=== PATIENT | female | born 1950 ===

== ENCOUNTER 2025-01-19 08:15 | Inpatient (IN) | payer OTHER ==
[~2025-01-19] VITALS: Ht 165.1 cm; Wt 66.7 kg
[2025-01-19] MEDS ORDERED: EVISTA60 MG (08:50)
[2025-01-19 08:53] VITALS: BP 149/72
[2025-01-19 09:09] LABS: HEMATOCRIT 35.8 % (36.0-45.00); HEMOGLOBIN 11.9 g/dL (12.0-15.00); MEAN CELL VOLUME 95.8 fL (80.00-100.00); MEAN CORPUSCULAR HEMOGLOBIN 31.9 pg (27.00-32.0); MEAN CORPUSCULAR HGB CONC 33.3 g/dl (32.0-36.0); PLATELET COUNT 214 K/uL (150-450); RED BLOOD COUNT 3.74 M/uL (4.00-6.00); RED CELL DISTRIBUTION WIDTH 12.8 % (11.5-14.5); URINE APPEARANCE Clear; URINE BILIRRUBIN Negative (NEGATIVE); URINE BLOOD Negative; URINE COLOR Yellow; URINE GLUCOSE Negative (NEGATIVE); URINE KETONE Negative (NEGATIVE); URINE LEUKOCYTE Negative; URINE NITRATE Negative; URINE PROTEIN Negative (NEGATIVE); URINE UROBILINOGEN 0.2 E.U./dl
[2025-01-19 09:10] LABS: URINE BACTERIA 4.8 uL (0.0-1933); URINE EPITHELIAL CELLS 1.8 uL (0.0-38.8); URINE RBC 3.6 uL (0.0-20.8)
[2025-01-19 09:23] LABS: URINE WBC 1.5 uL (0.0-23.2)
[2025-01-19 09:26] LABS: INR 0.94; PROTHROMBIN TIME 10.3 SECONDS (9.0-11.5)
[2025-01-19 09:43] LABS: ALBUMIN 3.3 gm/dL (3.4-5.0); BILIRUBIN TOTAL 0.44 mg/dL (0.3-1.2); CALCIUM 9.4 mg/dL (8.5-10.1); CREATININE SERUM 0.57 mg/dL (0.55-1.02); GFR 103.68; GLOBULINA 3.9 G/DL (2.4-3.5); POTASSIUM 4.45 mEq/L (3.5-5.1); TOTAL PROTEIN 7.2 gm/dL (6.4-8.2)
[2025-01-19 09:49] LABS: RH POSITIVE
[2025-01-25] MEDS ORDERED: KETOROLAC TROMETHAMINE 60 MG VIAL IM ONE (09:15)
[2025-01-25] MEDS ORDERED: CEFAZOLIN SODIUM 1,000 MG VIAL IV ONE (09:15)
[2025-01-25] MEDS ORDERED: TRANEXAMIC ACID 100MG/1ML (1000MG) AMPUL IV ONE ×2 (09:15)
[2025-01-25] MEDS ORDERED: MORPHINE SULFATE 4 MG/ML VIAL IV ONE ×2 (09:30→13:10)
[2025-01-25] MEDS ORDERED: GENTAMICIN SULFATE 40 MG/ML VIAL IV SCH (11:11)
[2025-01-25] MEDS ORDERED: MORPHINE SULFATE 2 MG/ML CARTRIDGE IV ONE (11:15)
[2025-01-25] MEDS ORDERED: ONDANSETRON HCL 2 MG/ML VIAL IV PRN (11:15)
[2025-01-25] MEDS ORDERED: MORPHINE SULFATE 4 MG/ML CARTRIDGE IV PRN (11:15)
[2025-01-25] MEDS ORDERED: SODIUM CHLORIDE 0.45 % 1,000 ML IV SCH (11:15)
[2025-01-25] MEDS ORDERED: CEFAZOLIN SODIUM 1,000 MG VIAL IV SCH (12:00)
[2025-01-25 14:17] LABS: HEMATOCRIT 30.7 % (36.0-45.00); RED BLOOD COUNT 3.21 M/uL (4.00-6.00)
[2025-01-25 14:24] LABS: HEMOGLOBIN 10.3 g/dL (12.0-15.00)
[2025-01-25 16:32] VITALS: BP 129/75; O2SAT 96
[2025-01-26] VITALS: BP 129/72; O2SAT 97
[2025-01-26 07:00] LABS: HEMATOCRIT 30.8 % (36.0-45.00); HEMOGLOBIN 10.3 g/dL (12.0-15.00); MEAN CELL VOLUME 95.9 fL (80.00-100.00); MEAN CORPUSCULAR HEMOGLOBIN 32.2 pg (27.00-32.0); MEAN CORPUSCULAR HGB CONC 33.5 g/dl (32.0-36.0); PLATELET COUNT 196 K/uL (150-450); RED BLOOD COUNT 3.21 M/uL (4.00-6.00); RED CELL DISTRIBUTION WIDTH 12.4 % (11.5-14.5)
[2025-01-26 08:00] VITALS: BP 150/75; O2SAT 95
[2025-01-26] MEDS ORDERED: BACITRACIN 28.35 GM OINT.TUBE TOP SCH (09:00)
[2025-01-26] MEDS ORDERED: SOD FERRIC GLUC COMPLX/SUCROSE 62.5 MG in 0.9 % SODIUM CHLORIDE 50 ML IV SCH (09:00)
[2025-01-26] MEDS ORDERED: RIVAROXABAN 10 MG TAB PO SCH (09:00)
[2025-01-26] MEDS ORDERED: IRON FUM,PS/FOLIC/BCOMP,C NO.9 1 CAP CAPSULE PO SCH (09:00)
[2025-01-26] MEDS ORDERED: SENNA/DOCUSATE SODIUM 1 TAB TABLET PO SCH (09:00)
[2025-01-26] MEDS ORDERED: ACETAMINOPHEN WITH CODEINE 1 UDTAB TABLET PO PRN ×2 (09:15→12:17)
[2025-01-26 12:00] VITALS: BP 145/83; O2SAT 96
[2025-01-26 16:00] VITALS: BP 143/86; O2SAT 96
[2025-01-27 00:45] VITALS: BP 131/68; O2SAT 97
[2025-01-27] MEDS ORDERED: Septra Ds Tablet PO (06:31)
[2025-01-27] MEDS ORDERED: XARELTO10 MG PO (06:31)
[2025-01-27] MEDS ORDERED: INTEGRA PLUS C1 EACH PO (06:31)
[2025-01-27] MEDS ORDERED: ACETAMINOPHEN-1 EAC2 PO (06:32)
[2025-01-27 07:15] LABS: HEMATOCRIT 30.7 % (36.0-45.00); MEAN CELL VOLUME 95.8 fL (80.00-100.00); MEAN CORPUSCULAR HEMOGLOBIN 31.2 pg (27.00-32.0); MEAN CORPUSCULAR HGB CONC 32.5 g/dl (32.0-36.0); PLATELET COUNT 192 K/uL (150-450); RED CELL DISTRIBUTION WIDTH 12.5 % (11.5-14.5)
[2025-01-27] MEDS ORDERED: SULFAMETHOXAZOLE/TRIMETHOPRIM DS 1 TAB PO SCH (09:00)
[2025-01-27 09:05] VITALS: BP 150/82; O2SAT 97
[2025-01-27 16:43] VITALS: BP 145/71; O2SAT 95
== END 2025-01-28 06:15 | DRG 470 ==
LOC: O/R 01-25 06:18 → SURH 01-25 08:15
PROVIDERS: ADMIT Orthopaedic Surgery Sports Medicine; ATTEND Orthopaedic Surgery Sports Medicine
PROC: 0SRC0J9 Replacement of Right Knee Joint with Synthetic Substitute, Cemented, Open Approach (ICD-10-PCS; principal; 2025-01-25 13:00)
DX: M17.11 Unilateral primary osteoarthritis, right knee (principal)